=== PATIENT | male | born 1990 | race Caucasian/White ===

== ENCOUNTER 2017-10-01 13:17 | Emergency (ER) | payer OTHER ==
[2017-10-01] MEDS ORDERED: SODIUM CHLORIDE 0.9% 1,000 ML IV ONE (14:12)
[2017-10-01 14:28] VITALS: RESP 18
[2017-10-01] MEDS ORDERED: DEXAMETHASONE SOD PHOSPHATE 10 MG/ML 1 ML VIAL IV STA (14:35)
[2017-10-01] MEDS ORDERED: BENZOCAINE SPRAY 1 CAN TOPICAL STA (14:35)
[2017-10-01 14:44] LABS: Basophils # (A) 0.1 k/uL (0-0.2); Basophils % (A) 1 %; Eosinophils # (A) 0.2 k/uL (0-0.7); Eosinophils % (A) 1 %; HCT 42.5 % (39.0-53.0); HGB 14.4 gm/dL (13.0-17.5); Lymphocytes # (A) 1.3 k/uL (1.0-4.8); Lymphocytes % (A) 10 %; MCH 29.9 pg (25.0-35.0); Monocytes # (A) 0.8 k/uL (0-1.0); Monocytes % (A) 6 %; Neutrophils # (A) 10.6 k/uL (1.3-7.7); Neutrophils % (A) 80 %; Platelet Count 256 k/uL (150-450); RBC 4.83 m/uL (4.30-5.90); RDW 12.7 % (11.5-15.5); WBC 13.2 k/uL (3.8-10.6)
[2017-10-01 14:53] LABS: ALT 17 U/L (21-72); AST 17 U/L (17-59); Albumin 4.3 g/dL (3.5-5.0); Alkaline Phosphatase 64 U/L (38-126); Anion Gap 11 mmol/L; Blood Urea Nitrogen 9 mg/dL (9-20); Calcium 9.1 mg/dL (8.4-10.2); Carbon Dioxide 24 mmol/L (22-30); Chloride 104 mmol/L (98-107); Glucose 108 mg/dL (74-99); Sodium 139 mmol/L (137-145); Total Bilirubin 0.6 mg/dL (0.2-1.3); Total Protein 7.5 g/dL (6.3-8.2)
--- NOTE | 2017-10-01 15:41 | CT ---
EXAMINATION TYPE: CT soft tissue neck w con DATE OF EXAM: 10/01/2017 HISTORY: ENLARGED RT TONSIL/TREATED FOR STREP 2 WKS AGO COMPARISON: NONE CT DLP: 555.2 mGycm. Automated Exposure Control for Dose Reduction was Utilized. TECHNIQUE: CT scan of the neck is performed with IV Contrast, patient injected with 100 mL of Isovue 300, axial images are obtained, coronal and sagittal reformatted images are reviewed. FINDINGS: Airway: There is fullness of the adenoid tonsils in the posterior nasopharynx causing mass effect on the nasopharyngeal airway. There is fullness of the palatine tonsils more prominent on the right vers us left causing midline shift of the oral pharyngeal airway to the left by roughly 6 mm. No well-form ed fluid collection or drainable abscess is identified. Region of epiglottis and vallecula appears wi thin normal limits. Hypopharyngeal airway into proximal trachea is unremarkable. Thyroid gland is fel t within normal limits. Lung apices are clear Parotid/submandibular glands: No gross abnormality seen. Carotid/Vascular Structures: Incidental dominant left vertebral artery. Osseous Structures: Straightening of cervical spine. Slight levoconvex scoliotic curvature on coronal images. Other: Parapharyngeal fat spaces are maintained. There are prominent and enlarged bilateral neck lymp h nodes, for reference lymph node anterior to right internal jugular vein inferior right submandibula r level at superior aspect hyoid bone measures 1.5 x 1.3 cm axial image 63. Symmetric slightly enlarg ed left-sided lymph nodes are noted for reference near axial image 71. IMPRESSION: Adenoid tonsillar and to greater degree palatine tonsillar enlargement worse on the right likely reflecting acute tonsillitis. No well-formed fluid collection or drainable abscess identified . Reactive cervical adenopathy felt present.
--- NOTE | 2017-10-01 16:07 | ED ---
ENT HPI - General Chief complaint: ENT Stated complaint: Sore Throat Time Seen by Provider: 10/01/17 13:44 Source: patient Mode of arrival: ambulatory Limitations: no limitations - History of Present Illness Initial comments: This is 27-year-old male with no past medical history who presents today for chief complaint of sore throat. Patient states that over week ago he presented to [facility] for a sore throat, at that time he was diagnosed with strep throat and put on penicillin for 10 days. Patient took the full course of antibiotics, however he continued to have a sore throat and then noticed enlargement and redness of his right tonsil is much worse than in comparison to his left. Patient states that he has pain with swallowing. But overall has been feeling well, he denies any fever, chills, nausea, vomiting, diarrhea, malaise, fatigue, difficulty swallowing, difficulty breathing. However patient does mention that it does hurt when he opens his mouth fully. Upon presentation to the emergency department patient's vital signs stable. Patient denies any recent shortness of breath, chest pain, back pain, abdominal pain, numbness or tingling, dysuria or hematuria, constipation or diarrhea, headaches or visual changes, or any other complaints. - Related Data Previous Rx's Medication Instructions Recorded Clindamycin [Cleocin] 300 mg PO Q8H 10 Days #60 capsule 10/01/17 Allergies Allergy/AdvReac Type Severity Reaction Status Date / Time bee venom protein (honey bee) Allergy Swelling Verified 10/01/17 14:00 tuberculin, purified protein AdvReac tests Verified 10/01/17 14:00 deriva positive [From Tubersol] every time Review of Systems ROS Statement: Those systems with pertinent positive or pertinent negative responses have been documented in the HPI. ROS Other: All systems not noted in ROS Statement are negative. Eyes: Denies: eye pain, eye discharge ENT: Reports: as per HPI, throat pain. Denies: ear pain Respiratory: Denies: cough, dyspnea, wheezes, stridor Cardiovascular: Denies: chest pain Endocrine: Denies: fatigue Gastrointestinal: Denies: abdominal pain, nausea, vomiting, diarrhea, constipation Genitourinary: Denies: urgency, dysuria, frequency Skin: Denies: rash Neurological: Denies: headache, weakness Past Medical History Past Medical History: Asthma History of Any Multi-Drug Resistant Organisms: None Reported Past Surgical History: No Surgical Hx Reported Past Psychological History: No Psychological Hx Reported Smoking Status: Current every day smoker Past Alcohol Use History: None Reported Past Drug Use History: None Reported General Exam - General Exam Comments Initial Comments: General: The patient is awake and alert, in no distress, and does not appear acutely ill. Eye: Pupils are equal, round and reactive to light, extra-ocular movements are intact. No nystagmus. There is normal conjunctiva bilaterally. No signs of icterus. Ears, nose, mouth and throat: There are moist mucous membranes and no oral lesions. There is erythema of the oropharynx, no evidence of exudates or crypts of the tonsils. However there is uvula deviation to the left and enlargement of the right tonsil in comparison with the left. Nares patent. No pain with pressure to sinuses. Patient has mild trismus upon opening the jaw. Examination of the ears cone of light and malleolus present with no retraction , effusion or erythema of the tympanic membranes bilaterally. Neck: The neck is supple, there is no tenderness or JVD. Palpable submandibular and anterior cervical lymphadenopathy with the right being greater than the left. Cardiovascular: There is a regular rate and rhythm. No murmur, rub or gallop is appreciated. Respiratory: Lungs are clear to auscultation, respirations are non-labored, breath sounds are equal. No wheezes, stridor, rales, or rhonchi. Musculoskeletal: Normal ROM, no tenderness. Strength 5/5. Sensation intact. Pulses equal bilaterally 2+. Neurological: A&O x 3. CN II-XII intact, There are no obvious motor or sensory deficits. Coordination appears grossly intact. Speech is normal. Skin: Skin is warm and dry and no rashes or lesions are noted. Psychiatric: Cooperative, appropriate mood & affect, normal judgment. Limitations: no limitations Course Vital Signs 10/01/17 10/01/17 13:43 16:21 Temperature 98.5 F 96.6 F L Pulse Rate 72 78 Respiratory 18 18 Rate Blood Pressure 127/60 139/74 O2 Sat by Pulse 97 97 Oximetry Medical Decision Making - Medical Decision Making This is a well-appearing, non-toxic 27-year-old male who presents today for chief complaint of sore throat 2 weeks. Patient states that he is seen at [facility] and recently diagnosed with strep throat, he just finished a course of penicillin for the past 10 days however this is not alleviate his symptoms and he is noticing enlargement of his right tonsil. Patient is afebrile upon presentation with no evidence of tachycardia. Upon physical examination patient has mild trismus, erythematous oropharynx with no tonsillar exudate or crypts. However there is deviation of the uvula to the left with enlargement of the right tonsil +3. CBC, CMP and CT of the neck and soft tissues were obtained. CBC revealed elevated WBC's at 13.2. CMP unremarkable. CT revealed adenoid and palatine tonsillitis with the right greater than the left, however there is no evidence of fluid collection for drainage. There was reactive lymphadenopathy present. No evidence of retropharyngeal abscess. Patient was given 10 mg of Decadron and 1000 a liter bolus fluids. Patient stated that he was feeling much better after the Decadron shot. Case was discussed with Dr. Mckeon in detail, given patient is afebrile, had no signs of respiratory distress or severe trismus, and negative CT for peritonsillar or retropharyngeal abscess, or criteria for sepsis. We feel that the patient is stable for discharge with close ENT follow-up as well as antibiotic prescription for clindamycin. Patient agrees with plan and is happy to be discharged. - Lab Data Result diagrams: 10/01/17 14:15 10/01/17 14:15 Lab Results 10/01/17 10/01/17 10/01/17 Range/Units 14:15 14:15 14:15 WBC 13.2 H (3.8-10.6) k/uL RBC 4.83 (4.30-5.90) m/uL Hgb 14.4 (13.0-17.5) gm/dL Hct 42.5 (39.0-53.0) % MCV 88.0 (80.0-100.0) fL MCH 29.9 (25.0-35.0) pg MCHC 34.0 (31.0-37.0) g/dL RDW 12.7 (11.5-15.5) % Plt Count 256 (150-450) k/uL Neutrophils % 80 % Lymphocytes % 10 % Monocytes % 6 % Eosinophils % 1 % Basophils % 1 % Neutrophils # 10.6 H (1.3-7.7) k/uL Lymphocytes # 1.3 (1.0-4.8) k/uL Monocytes # 0.8 (0-1.0) k/uL Eosinophils # 0.2 (0-0.7) k/uL Basophils # 0.1 (0-0.2) k/uL Sodium 139 (137-145) mmol/L Potassium 4.0 (3.5-5.1) mmol/L Chloride 104 (98-107) mmol/L Carbon Dioxide 24 (22-30) mmol/L Anion Gap 11 mmol/L BUN 9 (9-20) mg/dL Creatinine 0.84 (0.66-1.25) mg/dL Est GFR (CKD-EPI)AfAm >90 (>60 ml/min/1.73 sqM) Est GFR (CKD-EPI)NonAf >90 (>60 ml/min/1.73 sqM) Glucose 108 H (74-99) mg/dL Calcium 9.1 (8.4-10.2) mg/dL Total Bilirubin 0.6 (0.2-1.3) mg/dL AST 17 (17-59) U/L ALT 17 L (21-72) U/L Alkaline Phosphatase 64 (38-126) U/L Total Protein 7.5 (6.3-8.2) g/dL Albumin 4.3 (3.5-5.0) g/dL Heterophile Antibody Negative (Negative) Disposition Clinical Impression: Cellulitis of tonsil, Acute tonsillitis Disposition: HOME SELF-CARE Instructions: Tonsillitis (ED) Additional Instructions: Please use medication as discussed. PLEASE follow-up with ENT in the next 24 hours. Please return to emergency room if the symptoms increase or worsen or for any other concerns. Prescriptions: Clindamycin [Cleocin] 300 mg PO Q8H 10 Days #60 capsule Is patient prescribed a controlled substance at d/c from ED?: No Referrals: None,Stated [Primary Care Provider] - 1-2 days Jaime Thomas DO [Doctor of Osteopathic Medicine] - 1-2 days Time of Disposition: 16:06
[2017-10-01 16:22] VITALS: BP 139/74; PULSE 78; TEMP 96.6
== END 2017-10-01 16:22 | disposition home or self-care (01) ==
LOC: EC 13:17
DX: J03.90 Acute tonsillitis, unspecified (principal); D72.829 Elevated white blood cell count, unspecified; F17.200 Nicotine dependence, unspecified, uncomplicated; Z88.8 Allergy status to other drugs, medicaments and biological substances; Z91.030 Bee allergy status
CPT/HCPCS: 99283; 96374; 96361; 36415; 80053; 85025; 86308; 87040; 70491; J1100; Q9967